=== PATIENT | female | born 1995 | race Caucasian/White ===

== ENCOUNTER 2022-06-14 03:28 | Emergency (ER) | payer BC ==
[2022-06-14] MEDS ORDERED: LORazepam 2 MG/ML SDV IVPUSH ONE (03:33)
[2022-06-14] MEDS ORDERED: Sodium Chloride 0.9% 10 ML Syringe FLUSH PRN (03:34)
[2022-06-14] MEDS ORDERED: Haloperidol Lactate 5 MG/ML SDV IM ONE (03:41)
[2022-06-14] MEDS ORDERED: diphenhydrAMINE 50 MG/ML SDV IM ONE (03:42)
[2022-06-14] MEDS ORDERED: Midazolam 1 MG/ML 2 ML SDV ONE ×3 (04:01→05:26)
[2022-06-14] MEDS ORDERED: Midazolam 1 MG/ML 2 ML SDV IVPUSH ONE ×3 (04:01→05:26)
[2022-06-14 04:08] LABS: MDMA (ECSTASY), URINE NEGATIVE (NEGATIVE); METHAMPHETAMINES,URINE NEGATIVE (NEGATIVE)
[2022-06-14 04:09] LABS: AMPHETAMINES,URINE NEGATIVE (NEGATIVE); BARBITURATES,URINE NEGATIVE (NEGATIVE); BENZODIAZEPINE,URINE NEGATIVE (NEGATIVE); METHADONE,URINE POSITIVE (NEGATIVE); OPIATES,URINE NEGATIVE (NEGATIVE); OXYCODONE,URINE NEGATIVE (NEGATIVE); PHENCYCLIDINE,URINE NEGATIVE (NEGATIVE); TCA,URINE NEGATIVE (NEGATIVE)
[2022-06-14 04:44] LABS: ANION GAP 15.4 mEq/L (7-13); CHLORIDE,CL 99 mmol/L (98-107); SODIUM,NA 136 mmol/L (136-145)
[2022-06-14 04:45] LABS: ESTIMATED GFR 64 mL/min (>=60)
[2022-06-14] MEDS ORDERED: Sodium Chloride 0.9% 1,000 ML IV ONE (07:18)
== END 2022-06-14 08:42 | disposition home or self-care (01) ==
LOC: DL.ED 03:28
DX: F19.921 Other psychoactive substance use, unspecified with intoxication with delirium (principal); Z79.899 Other long term (current) drug therapy
CPT/HCPCS: 36415; 70450; 80053; 80305; 81001; 81025; 83605; 83735; 84145; 84443; 85025; 86140; 87086; 96361; 96372; 96374; 96375; 96376; 99284; J1200; J1630; J2060; J2250; J3490; J7030